=== PATIENT | female | born 1945 | race Caucasian/White ===

== ENCOUNTER 2020-04-05 10:03 | Outpatient (CLI) | payer MEDICARE ==
--- NOTE | 2020-04-05 10:44 | BD ---
DEXA bone density examination HISTORY: 75-year-old postmenopausal female for screening FINDINGS: L1--bone mineral density 0.749 g/sq cm; T score -2.2 L2--bone mineral density 0.629 g/sq cm; T score -3.6 L3--bone mineral density 0.681 g/sq cm; T score -3.7 L4--bone mineral density 0.876 g/sq cm; T score -1.7 Total L1-L4--bone mineral density 0.734 g/sq cm; T score -2.8 Left femoral neck--bone mineral density0.529 g/sq cm; T score -2.9 Total proximal left femur--bone mineral density 0.749 g/sq cm ; T score -1.6 There is left convex rotoscoliosis thoracolumbar spine. IMPRESSION: 1. Moderate osteopenia of the lumbar spine and left femoral neck indicating a 4 fold increased risk f or fracture. 2. Left convex rotoscoliosis thoracolumbar spine.
== END 2020-04-05 10:04 | disposition home or self-care (01) ==
LOC: BICMAMMO 10:03
PROVIDERS: ATTEND Family Medicine
DX: M81.0 Age-related osteoporosis without current pathological fracture (principal); M85.89 Other specified disorders of bone density and structure, multiple sites; M41.9 Scoliosis, unspecified; Z78.0 Asymptomatic menopausal state
CPT/HCPCS: 77080

== ENCOUNTER 2020-06-30 13:16 | Outpatient (CLI) | payer MEDICARE ==
--- NOTE | 2020-06-30 13:44 | CT ---
CT Pulmonary Lung Scan History: Lung cancer screening. Personal history of nicotine dependence. Comparison: Radiograph of the chest 2019. Findings: Lung screening specific (lung-RADS): Groundglass nodule posterior segment right upper lobe measuring 8 mm. Solid nodule posterior basal right upper lobe measures 5 mm axial image 31. Potentially significant incidentals (lung-RADS category S) history: Negative. Other incidentals: Large sliding hiatal hernia. Moderate atherosclerotic plaque of the aorta. Incompl etely evaluated hypodensity interpolar and inferior left kidney. Multiple calcific granulomas of the spleen. No mediastinal adenopathy. Mild S-shaped scoliosis thoracolumbar spine. T11 incomplete burst fracture with 10-15% superior endpl ate height loss and minimal retropulsion. Old superior endplate Schmorl's node of L1. Pulmonary incidentals: Moderate background emphysema. Biapical pleural and parenchymal scarring. No p neumothorax. No effusion. Centrilobular and paraseptal emphysema. Mild bronchiectasis. Impression: 1. Lung RADS category 2: Benign appearance or behavior. Recommend follow-up screening CT in 12 months . 2. Lung RADS category S: Negative. No new or unknown potentially significant findings requiring urgen t additional evaluation. 3. Moderate centrilobular and paraseptal emphysema. 4. Hypodensity of the left kidney for nonemergent ultrasound recommended. Transcribed Date/Time: 06/30/2020 4:19 PM
== END 2020-06-30 13:17 | disposition home or self-care (01) ==
LOC: BICCT 13:16
PROVIDERS: ATTEND Family Medicine
DX: Z12.2 Encounter for screening for malignant neoplasm of respiratory organs (principal); F17.210 Nicotine dependence, cigarettes, uncomplicated; J43.2 Centrilobular emphysema; N28.89 Other specified disorders of kidney and ureter
CPT/HCPCS: G0297

== ENCOUNTER 2021-06-22 10:52 | Outpatient (CLI) | payer MEDICARE | END 2021-06-22 10:53 | disposition home or self-care (01) | LOC: BICCT 10:52 | PROVIDERS: ATTEND Family Medicine | DX: Z12.2 Encounter for screening for malignant neoplasm of respiratory organs (principal); Z87.891 Personal history of nicotine dependence; R91.8 Other nonspecific abnormal finding of lung field; N28.89 Other specified disorders of kidney and ureter; N20.0 Calculus of kidney; K44.9 Diaphragmatic hernia without obstruction or gangrene; I70.90 Unspecified atherosclerosis | CPT/HCPCS: 71271 ==

== ENCOUNTER 2021-09-24 09:40 | Outpatient (CLI) | payer MEDICARE | END 2021-09-24 09:41 | disposition home or self-care (01) | LOC: BICCT 09:40 | PROVIDERS: ATTEND Family Medicine | DX: R91.8 Other nonspecific abnormal finding of lung field (principal) | CPT/HCPCS: 71271 ==

== ENCOUNTER 2022-04-03 12:55 | Outpatient (CLI) | payer MEDICARE | END 2022-04-03 12:56 | disposition home or self-care (01) | LOC: BICCT 12:55 | PROVIDERS: ATTEND Family Medicine | DX: Z12.2 Encounter for screening for malignant neoplasm of respiratory organs (principal); F17.210 Nicotine dependence, cigarettes, uncomplicated; J44.9 Chronic obstructive pulmonary disease, unspecified; R91.8 Other nonspecific abnormal finding of lung field; J98.09 Other diseases of bronchus, not elsewhere classified; J98.4 Other disorders of lung | CPT/HCPCS: 71271 ==

== ENCOUNTER 2022-10-10 09:27 | Outpatient (CLI) | payer MEDICARE | END 2022-10-10 09:28 | disposition home or self-care (01) | LOC: BICCT 09:27 | PROVIDERS: ATTEND Family Medicine | DX: Z12.2 Encounter for screening for malignant neoplasm of respiratory organs (principal); F17.210 Nicotine dependence, cigarettes, uncomplicated; R91.8 Other nonspecific abnormal finding of lung field; J98.09 Other diseases of bronchus, not elsewhere classified; K44.9 Diaphragmatic hernia without obstruction or gangrene; I25.10 Atherosclerotic heart disease of native coronary artery without angina pectoris | CPT/HCPCS: 71271 ==